=== PATIENT | male | born 1940 | race Caucasian/White ===

== ENCOUNTER 2017-12-29 07:21 | Day surgery (SDC) | payer OTHER ==
[2017-12-28 15:13] VITALS: BMI 19.5
[2017-12-29 07:53] VITALS: TEMP 97.6
[2017-12-29 09:06] VITALS: BP 142/83
[2017-12-29 10:10] VITALS: PULSE 69
--- NOTE | 2017-12-30 17:53 | PATH ---
Surgical Pathology Report Patient Name: CRISSY HAGAN [facility] Rec. #: [id number] /Age/Gender: 1940 (Age: 77) / M Account: [id number] Location: ASU-ENDOSCOPY Taken: 12/29/2017 Received: 12/29/2017 Reported: 12/30/2017 Physicians: Raj Mo M.D. Specimen(s) Received A: BX STOMACH B: BX RIGHT COLON POLYP C: RECTAL POLYP Clinical History Screening Postoperative diagnosis: Gastritis, colon polyps Final Diagnosis A. STOMACH, BIOPSY: GASTRIC BODY MUCOSA WITH SEVERE CHRONIC ACTIVE GASTRITIS. IMMUNOHISTOCHEMICAL STAIN FOR H. PYLORI IS POSITIVE (NUMEROUS). B. COLON, RIGHT, POLYP, POLYPECTOMY: TUBULAR ADENOMA. C. 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 CAUTERIZED MARGIN OF RESECTION IS NEGATIVE FOR HIGH-GRADE DYSPLASIA. Comment: Findings seen interdepartmentally. Findings discussed with Dr. Mo. Electronically Signed Diana Hopkins M.D. Gross Description A. Received in formalin, labeled "BX stomach" are 4 gómez, irregular portions of soft tissue ranging in size from 0.1-0.3 cm. in greatest dimension. The specimens are submitted in toto in one cassette. B. Received in formalin, labeled "polyp from right colon" are 5 gómez, irregular portions of soft tissue ranging in size from 0.1-0.2 cm. in greatest dimension. The specimens are submitted in toto in one cassette. C. Received in formalin, labeled "polyp from rectum" are 2 gómze, polypoid soft tissue measuring 1.5 x 1.2 and 0.2 x 0.1 cm. in greatest dimension. The larger polyp is pedunculated with base inked in blue, and bisected. The specimens are submitted in toto in 2 cassettes (1- contains smaller polypoid tissue). MLSZ/12/29/2017 marshal/12/29/2017
== END 2017-12-29 10:00 | disposition home or self-care (01) ==
LOC: JASU-ENDO 07:21
PROVIDERS: ATTEND Internal Medicine Gastroenterology
PROC: 0DBP8ZX Excision of Rectum, Via Natural or Artificial Opening Endoscopic, Diagnostic (ICD-10-PCS; 2017-12-29)
PROC: 0DB68ZX Excision of Stomach, Via Natural or Artificial Opening Endoscopic, Diagnostic (ICD-10-PCS; 2017-12-29)
PROC: 0DBK8ZX Excision of Ascending Colon, Via Natural or Artificial Opening Endoscopic, Diagnostic (ICD-10-PCS; principal; 2017-12-29 10:00)
DX: Z12.11 Encounter for screening for malignant neoplasm of colon (principal); D12.2 Benign neoplasm of ascending colon; D12.8 Benign neoplasm of rectum; K29.50 Unspecified chronic gastritis without bleeding; K64.8 Other hemorrhoids
CPT/HCPCS: 88305-TC; 88342-TC

== ENCOUNTER 2018-12-03 07:28 | Day surgery (SDC) | payer OTHER ==
[2018-12-02 17:30] VITALS: BMI 25.0
[2018-12-03] MEDS ORDERED: LIDOCAINE HCL 1%, 10 MG/ML (20ML VIAL) ONE (07:32)
[2018-12-03] MEDS ORDERED: LIDOCAINE HCL 0.5%, 5 MG/ML (50mL SDVIAL) ONE (07:35)
[2018-12-03] MEDS ORDERED: MIDAZOLAM HCL 2 MG/2 ML SINGLE DOSE VIAL ONE ×2 (08:23→08:49)
[2018-12-03] MEDS ORDERED: DESFLURANE GAS 240 ML BOTTLE IH ONE (08:23)
[2018-12-03] MEDS ORDERED: PROPOFOL 20 ML ONE (08:23)
[2018-12-03] MEDS ORDERED: EPHEDRINE SULFATE/0.9% NACL/PF 50 MG/10 ML SYRINGE NR ONE (08:24)
[2018-12-03] MEDS ORDERED: ROCURONIUM BROMIDE 50 MG/5 ML SYRINGE ONE (08:24)
[2018-12-03] MEDS ORDERED: PHENYLEPHRINE HCL 10 MG/1 ML SINGLE DOSE VIAL ONE (08:24)
[2018-12-03] MEDS ORDERED: BUPIVACAINE HCL/PF 0.5% (5 MG/ML) 30 ML VIAL IJ ONE ×2 (08:48→10:04)
[2018-12-03] MEDS ORDERED: DEXAMETHASONE SOD PHOSPHATE/PF 10 MG/ML SDV ONE (08:48)
--- NOTE | 2018-12-03 09:38 | HP ---
History & Physical Update - History History: No Change - Physical Physical: No Change - Assessment Assessment: No Change - Plan Plan: No Change (no changes since visit on 11/30/18)
[2018-12-03] MEDS ORDERED: ceFAZolin SODIUM 1 GM VIAL IVPB ONE (10:04)
[2018-12-03] MEDS ORDERED: DEXAMETHASONE SOD PHOSPHATE 4 MG/1 ML VIAL ONE (10:53)
[2018-12-03] MEDS ORDERED: GLYCOPYRROLATE 0.2 MG/1 ML VIAL ONE (11:10)
[2018-12-03] MEDS ORDERED: NEOSTIGMINE METHYLSULFATE 0.5 MG/ML - 10 ML MDV ONE (11:10)
[2018-12-03] MEDS ORDERED: KETOROLAC TROMETHAMINE 30 MG/1 ML VIAL ONE (11:10)
--- NOTE | 2018-12-03 12:41 | OP ---
Operative Note - Note: Operative Date: 12/03/18 Pre-Operative Diagnosis: LIH with obstruction Operation: Robotic LIH repair with mesh Findings: LIH with incarcerated omentum and lipoma of the cord Implants: Progrip mesh 15 x 10 cm Post-Operative Diagnosis: Same as Pre-op Surgeon: Darius Cao Intelligence Consultant: Angle Figueroa Anesthesia: General Estimated Blood Loss (mls): 20 Operative Report Dictated: Yes
--- NOTE | 2018-12-03 12:52 | SURG ---
Surgery Tunnel Kiln Firer Note Tunnel Kiln Firer: Angle Figueroa PA-C Date of Service: 12/03/18 Diagnosis: left inguinal hernia with obstruction Procedure: Robotic assisted laparoscopic left inguinal hernia repair with mesh I was present for the entirety of the operative procedure. For further detail, please refer to operative report. Visit type - Case Type Case Type: Scheduled - Emergency Emergency Visit: No - New patient This patient is new to me today: Yes Date on this admission: 12/03/18
--- NOTE | 2018-12-03 13:24 | OP ---
DATE OF OPERATION: 12/03/2018 PROCEDURE: Robotic left inguinal hernia repair with mesh. PREOPERATIVE DIAGNOSIS: Left inguinal hernia with obstruction. POSTOPERATIVE DIAGNOSIS: Left inguinal hernia with obstruction. SURGEON: Darius Cao MD LEAD JAVASCRIPT ENGINEER: PATTI García ANESTHESIA: General endotracheal. FINDINGS: This is a 78-year-old male who presents with a left inguinal bulge, which was partially reducible for which the patient was advised repair of the left inguinal hernia. Consent was obtained after discussing the risks, benefits, and alternatives of the procedure. DESCRIPTION OF PROCEDURE: Patient was brought to the operating room and placed in supine position. General endotracheal anesthesia was administered. Both arms were then tucked, and a beanbag was deflated. The abdomen was prepped and draped in the usual sterile fashion. Using 0.5% Marcaine, local anesthesia was administered to the proposed incision sites. The peritoneal cavity was entered using the Veress needle technique via an 8-mm supraumbilical incision slightly to the left of midline. Using scalpel blade No. 15, the pneumoperitoneum was then established. Two 8-mm ports were inserted through each side of the middle port 8 cm away from each side. Patient was then placed in steep Trendelenburg position. The target organ was set, and the robotic arms were docked. Fenestrated bipolar was inserted at the left-sided port, and Endo Baldomero were inserted at the right-sided port. The right inguinal canal was inspected and was noted to be hernia. The left inguinal canal was noted to contain an incarcerated omentum. Attempt to reduce it immediately was unsuccessful due to its adhesions to the hernia sac. A preperitoneal pocket was then made by incising the peritoneum about 4 cm above the inguinal canal using the EndoWrist Baldomero connected to the monopolar cautery. This pocket was extended medially toward the medial umbilical ligament and laterally towards the anterior superior iliac spine. Blunt and sharp dissection was done to get into the preperitoneal space using the inferior epigastric vessels as landmark. Medially, there is side of the symphysis pubis and laterally towards the anterior superior iliac spine. Inferiorly, this dissection was carried towards the psoas muscle and the bladder. Large lipomatous cord was resected away from the spermatic cord structures. The large hernia sac was also completely reduced and , dissected away from the spermatic cord structures. After this was completely reduced, the ProGrip 10 x 15-cm mesh was deployed covering the large attenuated inguinal ring, the inguinal floor, the femoral canal, and Hesselbach triangle. After deployment was deemed satisfactory, the preperitoneal fascia was closed with a continuous V-Lock 2-0 absorbable sutures. The peritoneal cavity was again carefully inspected and was noted to be free of inadvertent injury and active bleeding. The robotic arms were undocked, and the pneumoperitoneum was evacuated. The ports were removed. The wounds were closed with subcuticular Biosyn 4-0 sutures reinforced with Dermabond. Also an assistant sales center manager 5-mm blunt port was also inserted in the left flank for suctioning of the bleeding. Estimated blood loss was about 20 mL. Wound class clean. The patient received a gram of Ancef prior to the start of the procedure. [place] [id number]
[2018-12-03 13:50] VITALS: TEMP 97.6
[2018-12-03] MEDS ORDERED: ONDANSETRON 4 MG/2 ML VIAL IVPUSH PRN (14:34)
[2018-12-03] MEDS ORDERED: oxyCODONE HCL 5 MG TABLET PO PRN (14:34)
[2018-12-03 15:02] VITALS: BP 155/70; PULSE 79
== END 2018-12-03 15:00 | disposition home or self-care (01) ==
LOC: JASU-SURG 07:28
PROVIDERS: ATTEND Surgery
PROC: 8E0W4CZ Robotic Assisted Procedure of Trunk Region, Percutaneous Endoscopic Approach (ICD-10-PCS; 2018-12-03)
PROC: 0YQ64ZZ Repair Left Inguinal Region, Percutaneous Endoscopic Approach (ICD-10-PCS; principal; 2018-12-03 09:00)
DX: K40.30 Unilateral inguinal hernia, with obstruction, without gangrene, not specified as recurrent (principal)
CPT/HCPCS: 86850; 86900; 86901; 94760